=== PATIENT | male | born 1965 | race American Indian/Alaskan Native ===

== ENCOUNTER 2020-10-28 16:28 | Emergency (ER) | payer SELFPAY ==
[2020-10-28 17:19] VITALS: BP 116/71
--- NOTE | 2020-10-28 17:51 | XRay Report ---
CHEST PA AND LATERAL VIEWS INDICATION: cough. COMPARISON: None FINDINGS: Support devices: None Heart: Normal Lungs/Pleura: No acute pulmonary or pleural findings. IMPRESSION: 1. No significant abnormality. Signer Name: Sai Wei MD Signed: 10/28/2020 5:47 PM Workstation Name: [id number]
--- NOTE | 2020-10-28 18:31 | Emergency Department Report ---
- General Chief Complaint: Weakness Stated Complaint: FEVER;CHILLS;WEAKNESS Time Seen by Provider: 10/28/20 17:19 Source: patient Mode of arrival: Ambulatory Limitations: No Limitations - History of Present Illness Initial Comments: This is a 55-year-old male nontoxic, well nourished in appearance, no acute signs of distress presents to the ED with c/o of loss of smell and taste, productive cough, body aches, rhinorrhea, nasal congestion x several days. Patient describes productive cough as yellow mucus production. Patient denies any sick contacts. Patient denies any recent travels, long car, recent hospital stays. Patient denies any calf pain or calf tenderness. Patient denies any chest pain, short of breath, fever, chills, nausea, vomiting, hemoptysis, numbness, tingling, headache or stiff neck. Allergies to PCN. MD Complaint: cough, rhinorrhea, nasal congestion, other (Body aches) -: days(s) Severity: mild Severity scale (0 -10): 3 Quality: aching Consistency: constant Improves With: nothing Worsens With: nothing Associated Symptoms: rhinorrhea, nasal congestion, cough. denies: fever, chills, myalgias, diaphoresis, headache, sore throat, stiff neck, chest pain, shortness of breath, abdominal pain, nausea, vomiting, diarrhea, dysuria, rash, confusion, right sweats, weight loss, epistaxis, hoarseness, ear pain - Related Data Previous Rx's Medication Instructions Recorded Last Taken Type Benzonatate [Tessalon Perles] 100 mg PO Q8HR PRN #12 capsule 10/28/20 Unknown Rx Ondansetron [Zofran Odt] 4 mg PO Q12H PRN #12 tab.rapdis 10/28/20 Unknown Rx Allergies Allergy/AdvReac Type Severity Reaction Status Date / Time amoxicillin Allergy Hives Verified 10/28/20 17:11 ED Review of Systems ROS: Stated complaint: FEVER;CHILLS;WEAKNESS Other details as noted in HPI Comment: All other systems reviewed and negative Constitutional: denies: chills, fever Eyes: denies: eye pain, eye discharge, vision change ENT: congestion. denies: ear pain, throat pain Respiratory: cough. denies: shortness of breath, wheezing Cardiovascular: denies: chest pain, palpitations Endocrine: no symptoms reported Gastrointestinal: denies: abdominal pain, nausea, diarrhea Genitourinary: denies: urgency, dysuria Musculoskeletal: denies: back pain, joint swelling, arthralgia Skin: denies: rash, lesions Neurological: denies: headache, weakness, paresthesias Psychiatric: denies: anxiety, depression Hematological/Lymphatic: denies: easy bleeding, easy bruising ED Past Medical Hx - Past Medical History Hx Hypertension: Yes Hx Diabetes: Yes Additional medical history: HIGH CHOLESTROL - Social History Smoking Status: Never Smoker Substance Use Type: None - Medications Home Medications: Home Medications Medication Instructions Recorded Confirmed Last Taken Type Benzonatate [Tessalon Perles] 100 mg PO Q8HR PRN #12 capsule 10/28/20 Unknown Rx Ondansetron [Zofran Odt] 4 mg PO Q12H PRN #12 tab.rapdis 10/28/20 Unknown Rx ED Physical Exam - General Limitations: No Limitations General appearance: alert, in no apparent distress - Head Head exam: Present: atraumatic, normocephalic - Eye Eye exam: Present: normal appearance - Neck Neck exam: Present: normal inspection, full ROM. Absent: tenderness, meningismus, lymphadenopathy - Respiratory Respiratory exam: Present: normal lung sounds bilaterally. Absent: respiratory distress, wheezes, rales, rhonchi, stridor, chest wall tenderness, accessory muscle use, decreased breath sounds, prolonged expiratory - Cardiovascular Cardiovascular Exam: Present: regular rate, normal rhythm, normal heart sounds. Absent: bradycardia, tachycardia, irregular rhythm, systolic murmur, diastolic murmur, rubs, gallop - Extremities Exam Extremities exam: Present: full ROM - Back Exam Back exam: Present: full ROM - Neurological Exam Neurological exam: Present: alert, oriented X3, normal gait - Psychiatric Psychiatric exam: Present: normal affect, normal mood - Skin Skin exam: Present: warm, dry, intact, normal color. Absent: rash ED Course Vital Signs 10/28/20 17:16 Temperature 98.3 F Pulse Rate 82 Respiratory 20 Rate Blood Pressure 116/71 O2 Sat by Pulse 97 Oximetry - Reevaluation(s) Reevaluation #1: 10/28/20 18:31 Patient is speaking in full sentences with no signs of distress noted. ED Medical Decision Making - Radiology Data Referring Physician: MIAN REDMOND Patient Name: YOGI WHEATLEY Date of : 1965 Sex: Male Report Date: 2020-10-28 Report Status: Finalized [facility] [address] [place] [address] XRay Report Signed Patient: YOGI WHEATLEY MR#: [id number] : 1965 Acct:[id number] Age/Sex: 55 / M ADM Date: 10/28/20 Loc: ED Attending Dr: Ordering Physician: MIAN REDMOND NP Date of Service: 10/28/20 Procedure(s): XR chest routine 2V Accession Number(s): [id number] cc: MIAN REDMOND NP Fluoro Time In Minutes: CHEST PA AND LATERAL VIEWS INDICATION: cough. COMPARISON: None FINDINGS: Support devices: None Heart: Normal Lungs/Pleura: No acute pulmonary or pleural findings. IMPRESSION: 1. No significant abnormality. Signer Name: Sai Wei MD Signed: 10/28/2020 5:47 PM Workstation Name: [id number] Transcribed By: TM Dictated By: Sai Wei MD Electronically Authenticated By: Sai Wei MD Signed Date/Time: 10/28/201746 DD/ 45 TD/TT: - Medical Decision Making This is a 55-year-old male that presents with suspected Covid. Patient is stable and was examined by me. Chest x-ray has been obtained and dictated by radiologist with normal exam. Patient is notified of x-ray results with no questions noted. Patient does meet clinical concerns of COVID-19 and patient was instructed and educated on signs and symptoms and to self quarantine and seek medical attention as soon as possible if symptoms worsen. Patient given referrals for Covid swab testing. Patient was instructed to increase hydration, rest and take Tylenol for fever episodes. Vitals stable. Patient is nonfebrile and normal heart rate. Patient was instructed Follow-up with a primary care doctor in 3-5 days or if symptoms worsen and continue return to emergency room as soon as possible. At time time of discharge, the patient does not seem toxic or ill in appearance. No acute signs of distress noted. Patient agrees to [facility] treatment plan of care. No further questions noted by the patient.nt. Critical care attestation.: If time is entered above; I have spent that time in minutes in the direct care of this critically ill patient, excluding procedure time. ED Disposition Clinical Impression: Suspected COVID-19 virus infection Disposition: DC- TO HOME OR SELFCARE Is pt being admited?: No Does the pt Need Aspirin: No Condition: Stable Instructions: COVID-19, COVID-19: How to Protect Yourself and Others - [facility] Additional Instructions: Follow-up with a primary care doctor in 3-5 days or if symptoms worsen and continue return to emergency room as soon as possible. As educated and instructed to you must self quarantine yourself and people that you have been in close contact with similar symptoms for the next 14 days. Please see your nearest health department or primary care doctor that you are referred to for COVID testing. Increased rest, hydration, and take Tylenol as prescribed for fever episode. Prescriptions: Benzonatate [Tessalon Perles] 100 mg PO Q8HR PRN #12 capsule PRN Reason: Cough Ondansetron [Zofran Odt] 4 mg PO Q12H PRN #12 tab.rapdis PRN Reason: Nausea Referrals: AURELIO BAXTER MD [Primary Care Provider] - 3-5 Days PRIMARY CARE, [Referring] - 3-5 Days LALITHA HUERTA MD [Staff Physician] - 3-5 Days Forms: Work/School Release Form(ED) Time of Disposition: 18:36
== END 2020-10-28 19:35 | disposition home or self-care (01) ==
LOC: ED 16:28
DX: I10 Essential (primary) hypertension (principal); E11.9 Type 2 diabetes mellitus without complications; E78.00 Pure hypercholesterolemia, unspecified; Z20.828 Contact with and (suspected) exposure to other viral communicable diseases; Z79.899 Other long term (current) drug therapy; Z88.0 Allergy status to penicillin
CPT/HCPCS: 71046

== ENCOUNTER 2021-01-08 16:06 | Emergency (ER) | payer BC ==
--- NOTE | 2021-01-08 16:38 | Event Note ---
ED Screening Note Date of service: 01/08/21 Time: 16:35 ED Screening Note: 55-year-old male patient with history of diabetes presents emergency department via EMS for evaluation of altered mental status/syncope. It is unclear who called EMS to the patient's house. He states he has been feeling extremely dizzy and weak. Slow verbal responses but able to answer questions. Blood glucose level was normal in route. General: Awake, slow verbal responses. Neck: Supple. Full range of motion intact. Cardiovascular: Normal peripheral perfusion. Pulmonary: No respiratory distress. Patient is speaking normally without use of accessory muscles. Skin: No apparent rashes or lesions. Neurological: No facial asymmetry. Speech is clear. Follows commands. Patient is alert and oriented. Slow verbal responses. Strength and sensation intact throughout. Musculoskeletal: Moves all four extremities spontaneously with normal range of motion. Psych: Cooperative. Appropriate mood and affect. This initial assessment/diagnostic orders/clinical plan/treatment(s) is/are subject to change based on patients health status, clinical progression and re- assessment by fellow clinical providers in the ED. Further treatment and workup at subsequent clinical providers discretion. Patient/guardian urged not to elope from the ED as their condition may be serious if not clinically assessed and managed.
--- NOTE | 2021-01-08 17:06 | Cat Scan Report ---
CT head/brain wo con INDICATION / CLINICAL INFORMATION: 55 years Male; headache/syncope/AMS. TECHNIQUE: Routine CT head without contrast. All CT scans at this location are performed using CT dos e reduction for ALARA by means of automated exposure control. COMPARISON: None. FINDINGS: BRAIN / INTRACRANIAL CONTENTS: No acute hemorrhage, mass effect, midline shift, hydrocephalus, or acu te, large territorial infarct. No signs of significant atrophy or chronic infarct. There are minimal areas of decreased attenuation in the white matter of the cerebral hemispheres. The se are nonspecific findings and may be related to microangiopathy (hypertension, diabetes, atheroscle rosis), given the patient's age. CRANIOCERVICAL JUNCTION: No significant abnormality. ORBITS: No significant abnormality of visualized orbits. SINUSES / MASTOIDS: Visualized paranasal sinuses and mastoid air cells are essentially clear. ADDITIONAL FINDINGS: None. IMPRESSION: 1. No focal mass, hemorrhage, hydrocephalus, or acute, large territorial infarct. Signer Name: Andre Holland MD, III Signed: 01/08/2021 5:02 PM Workstation Name: [id number]
--- NOTE | 2021-01-08 17:13 | XRay Report ---
CHEST 1 VIEW 01/08/2021 4:07 PM INDICATION / CLINICAL INFORMATION: syncope. COMPARISON: October 28, 2020 FINDINGS: SUPPORT DEVICES: None. HEART / MEDIASTINUM: No significant abnormality. LUNGS / PLEURA: No significant pulmonary or pleural abnormality. No pneumothorax. ADDITIONAL FINDINGS: No significant additional findings. IMPRESSION: 1. No acute findings. Signer Name: Juan Francisco Nava MD Signed: 01/08/2021 5:08 PM Workstation Name: [email or web address]
[2021-01-08 17:23] LABS: Mean Corpuscular HGB Conc 34 % (32-34); Mean Corpuscular Volume 81 fl (84-94); Platelet Count 347 K/mm3 (140-440); Red Blood Count 3.94 M/mm3 (3.65-5.03); Red Cell Distribution Width 18.7 % (13.2-15.2)
[2021-01-08 18:22] LABS: Alanine Aminotransferase 38 units/L (7-56); BUN/Creatinine Ratio 19; Blood Urea Nitrogen 15 mg/dL (9-20); Calcium 9.3 mg/dL (8.4-10.2); Hemolysis Index 5
[2021-01-08] MEDS ORDERED: SODIUM CHLORIDE 0.9% 1000 ML 1,000 ML IV ONE (19:27)
--- NOTE | 2021-01-08 19:29 | Emergency Department Report ---
ED Syncope HPI - General Chief Complaint: Syncope Stated Complaint: HEADACHE Time Seen by Provider: 01/08/21 19:26 - Related Data Allergies/Adverse Reactions: Allergies amoxicillin Allergy (Verified 10/28/20 17:11) Hives Home Medications: Ambulatory Orders Benzonatate [Tessalon Perles] 100 mg PO Q8HR PRN #12 capsule 10/28/20 Ondansetron [Zofran Odt] 4 mg PO Q12H PRN #12 tab.rapdis 10/28/20 ED Review of Systems ROS: Stated complaint: HEADACHE Other details as noted in HPI ED Past Medical Hx - Past Medical History Previous Medical History?: Yes Hx Hypertension: Yes Hx Diabetes: Yes Additional medical history: HIGH CHOLESTROL - Surgical History Past Surgical History?: No - Social History Smoking Status: Never Smoker Substance Use Type: None - Medications Home Medications: Home Medications Medication Instructions Recorded Confirmed Last Taken Type Benzonatate [Tessalon Perles] 100 mg PO Q8HR PRN #12 capsule 10/28/20 Unknown Rx Ondansetron [Zofran Odt] 4 mg PO Q12H PRN #12 tab.rapdis 10/28/20 Unknown Rx ED Physical Exam - General Limitations: No Limitations ED Course Vital Signs 01/08/21 16:10 Temperature 98.4 F Pulse Rate 106 H Respiratory 18 Rate Blood Pressure 112/64 O2 Sat by Pulse 96 Oximetry ED Medical Decision Making - Lab Data Result diagrams: 01/08/21 17:03 01/08/21 17:03 Critical care attestation.: If time is entered above; I have spent that time in minutes in the direct care of this critically ill patient, excluding procedure time. ED Disposition Condition: Stable
--- NOTE | 2021-01-08 19:35 | Emergency Department Report ---
ED Syncope HPI - General Chief Complaint: Syncope Stated Complaint: HEADACHE Time Seen by Provider: 01/08/21 19:26 Source: patient, EMS, old records - History of Present Illness Initial Comments: 55-year male with a past medical history hypertension, diabetes, elevated cholesterol as per medical record is brought back emergently from triage after a witnessed syncopal episode with vomiting in the waiting room. Patient complaining of generalized weakness. When I interview patient he is slow to respond to questions and he complains of having generalized weakness and overall poor historian. He states he had a syncopal episode while playing video games prior to arrival. He reports decreased appetite for several days with decreased p.o. intake but denies pain. He initially denied having any past medical or surgical history when I interviewed the patient. He also denies alcohol abuse, substance abuse, or nausea vomiting prior to ED arrival. Patient apparently does complain of some difficulty swallowing. He states he last attempted to eat food 10 days ago and states it "swirls around in his mouth". He is able to tolerate liquids. He is currently taking the doxycycline recently prescribed. Is very difficult for him to describe whether or not he is having dysphagia versus odontophagia and what exactly is preventing him from swallowing. As per triage patient complained of headache today along with generalized weakness, dizziness, and sweating. Per EMS patient was unresponsive but gradually became responsive after their arrival. EMS reported a Blood glucose 210. Patient noted to fall asleep easily during triage. I did obtain collateral information from patient's sister Nicole for collateral information. She states that patient has a living with her for about 1 month si nce from his . For the last 3 months he has been sleeping a lot and not eating. He has having increased weakness and falls and she feels like he needs nutrition. He has visited an ER recently complaining of feel like something when his throat was placed on doxycycline. She reports a least a 50 pound weight loss in the last 3 months. She denies history of known psychiatric history. She states she thinks his medications include glipizide, Metformin, lisinopril, and atorvastatin Nurse was able to obtain that patient was recently admitted to [facility] and had a full work-up and evaluation without a definitive diagnosis or cause of symptoms. Patient does not know if he was tested for HIV - Related Data Allergies/Adverse Reactions: Allergies amoxicillin Allergy (Verified 10/28/20 17:11) Hives Home Medications: Ambulatory Orders Benzonatate [Tessalon Perles] 100 mg PO Q8HR PRN #12 capsule 10/28/20 Ondansetron [Zofran Odt] 4 mg PO Q12H PRN #12 tab.rapdis 10/28/20 Potassium Chloride [K-Dur] 20 meq PO BID #4 tab 01/09/21 levoFLOXacin [Levaquin TAB] 500 mg PO QDAY #4 tablet 01/09/21 ED Review of Systems ROS: Stated complaint: HEADACHE Other details as noted in HPI Comment: All other systems reviewed and negative ED Past Medical Hx - Past Medical History Previous Medical History?: Yes Hx Hypertension: Yes Hx Diabetes: Yes Additional medical history: HIGH CHOLESTROL - Surgical History Past Surgical History?: No - Social History Smoking Status: Never Smoker Substance Use Type: None - Medications Home Medications: Home Medications Medication Instructions Recorded Confirmed Last Taken Type Benzonatate [Tessalon Perles] 100 mg PO Q8HR PRN #12 capsule 10/28/20 Unknown Rx Ondansetron [Zofran Odt] 4 mg PO Q12H PRN #12 tab.rapdis 10/28/20 Unknown Rx Potassium Chloride [K-Dur] 20 meq PO BID #4 tab 01/09/21 Unknown Rx levoFLOXacin [Levaquin TAB] 500 mg PO QDAY #4 tablet 01/09/21 Unknown Rx ED Physical Exam - General Limitations: No Limitations - Other Other exam information: General: No acute distress Head: Atraumatic Eyes: normal appearance ENT: Dry mucous membranes without any posterior pharyngeal exudates or swelling. No stridor, no anterior neck mass, no thrush Neck: Normal appearance, no midline tenderness, no anterior neck mass noted Chest: Clear to auscultation bilaterally CV: Regular rate and rhythm Abdomen: Soft, normal bowel sounds, nontender, nondistended, no rebound or guarding Back: Normal inspection Extremity: Normal inspection, full range of motion Neuro: Alert O x 3, no facial asymmetry, speech clear, no gross motor sensory deficit Psych: Appropriate behavior Skin: No rash ED Course Vital Signs 01/08/21 01/08/21 01/08/21 16:10 19:28 19:30 Temperature 98.4 F Pulse Rate 106 H 88 90 Respiratory 18 18 16 Rate Blood Pressure 112/64 116/67 O2 Sat by Pulse 96 91 Oximetry 01/08/21 01/08/21 01/08/21 20:01 20:15 20:18 Temperature Pulse Rate 91 H 91 H Respiratory 21 20 18 Rate Blood Pressure 99/63 99/63 O2 Sat by Pulse 95 95 100 Oximetry 01/08/21 01/08/21 01/08/21 20:30 21:04 21:31 Temperature Pulse Rate 90 86 Respiratory 21 18 Rate Blood Pressure 102/63 102/63 105/61 O2 Sat by Pulse 76 L Oximetry 01/08/21 01/08/21 01/08/21 22:01 22:31 23:01 Temperature Pulse Rate 86 84 71 Respiratory 20 15 17 Rate Blood Pressure 100/60 115/65 121/67 O2 Sat by Pulse 97 97 Oximetry 01/08/21 01/09/21 01/09/21 23:31 00:01 00:30 Temperature Pulse Rate 69 74 79 Respiratory 21 18 17 Rate Blood Pressure 109/68 106/63 112/62 O2 Sat by Pulse 97 99 Oximetry 01/09/21 01/09/21 01/09/21 01:01 01:31 02:01 Temperature Pulse Rate 77 Respiratory 16 Rate Blood Pressure 93/60 123/67 117/72 O2 Sat by Pulse 97 97 Oximetry - Reevaluation(s) Reevaluation #1: 01/09/21 01:16 There is a patient has not complained of chest pain or shortness of breath. With generalized weakness. He was provided p.o. liquids and is able to tolerate without difficulty. Also tolerate swallowing a broken potassium chloride pill without difficulty. Patient was offered food to eat but he refused to eat stating he does not want to eat and does not have appetite. It does not appear to be any physical reason while patient cannot eat. During ED stay patient refuses to open his eyes at times. He refuses to follow some commands and speaks in a low voice and has to be encouraged to be cooperative and to provide information. Have not identified any concrete physical reasons for patient's presentation. I am concerned about patient's mental health and possible depression as a cause. Also been concerned that patient might benefit from HIV testing. Imaging of CT head, neck, chest abdomen and pelvis did not reveal any acute abnormalities. Patient apparently was recently admitted at [facility] for similar symptoms and had extensive work-up as well. I think patient would benefit from outpatient follow-up with her primary care doctor, HIV testing, and psychiatric evaluation. Patient did receive Levaquin for white cells in urine however, he lacks nitrites or findings of severe infection. 01/09/21 01:20 Bilateral Doppler was ordered and 9:44 PM and at this time it has not yet been performed. Production Generalist called the electronics technology department chair states that because it was ordered stat (even though it was ER order) it was not performed. I have reordered the bilateral leg Doppler stat at this time. I have a low suspicion for DVT given lack of leg edema but however, patient has and is significantly elevated D-dimer with lack of CT findings of pulmonary embolism ED Medical Decision Making - Lab Data Result diagrams: 01/08/21 17:03 01/08/21 17:03 Lab Results 01/08/21 01/08/21 01/08/21 Range/Units 17:03 17:03 17:03 WBC 2.2 L (4.5-11.0) K/mm3 RBC 3.94 (3.65-5.03) M/mm3 Hgb 11.0 L (11.8-15.2) gm/dl Hct 32.0 L (35.5-45.6) % MCV 81 L (84-94) fl MCH 28 (28-32) pg MCHC 34 (32-34) % RDW 18.7 H (13.2-15.2) % Plt Count 347 (140-440) K/mm3 Add Manual Diff Complete Total Counted 100 Seg Neuts % (Manual) 67.0 (40.0-70.0) % Band Neutrophils % 5.0 % Lymphocytes % (Manual) 13.0 L (13.4-35.0) % Monocytes % (Manual) 15.0 H (0.0-7.3) % Nucleated RBC % Not Reportable Seg Neutrophils # Man 1.5 L (1.8-7.7) K/mm3 Band Neutrophils # 0.1 K/mm3 Lymphocytes # (Manual) 0.3 L (1.2-5.4) K/mm3 Abs React Lymphs (Man) 0.0 K/mm3 Monocytes # (Manual) 0.3 (0.0-0.8) K/mm3 Eosinophils # (Manual) 0.0 (0.0-0.4) K/mm3 Basophils # (Manual) 0.0 (0.0-0.1) K/mm3 Metamyelocytes # 0.0 K/mm3 Myelocytes # 0.0 K/mm3 Promyelocytes # 0.0 K/mm3 Blast Cells # 0.0 K/mm3 WBC Morphology Not Reportable Hypersegmented Neuts Not Reportable Hyposegmented Neuts Not Reportable Hypogranular Neuts Not Reportable Smudge Cells Not Reportable Toxic Granulation Not Reportable Toxic Vacuolation Not Reportable Dohle Bodies Not Reportable Pelger-Huet Anomaly Not Reportable Vandana Rods Not Reportable Platelet Estimate Consistent w auto Clumped Platelets Not Reportable Plt Clumps, EDTA Not Reportable Large Platelets Rare Giant Platelets Not Reportable Platelet Satelliting Not Reportable Plt Morphology Comment Not Reportable RBC Morphology Not Reportable Dimorphic RBCs Not Reportable Polychromasia Not Reportable Hypochromasia Not Reportable Poikilocytosis Not Reportable Anisocytosis Not Reportable Microcytosis Not Reportable Macrocytosis Not Reportable Spherocytes Not Reportable Pappenheimer Bodies Not Reportable Sickle Cells Not Reportable Target Cells Not Reportable Tear Drop Cells Rare Ovalocytes Rare Helmet Cells Not Reportable Goyal-Alsey Bodies Not Reportable [place] Rings Not Reportable Caney Cells Not Reportable Bite Cells Not Reportable Crenated Cell Not Reportable Elliptocytes Not Reportable Acanthocytes (Spur) Not Reportable Rouleaux Not Reportable Hemoglobin C Crystals Not Reportable Schistocytes Not Reportable Malaria parasites Not Reportable [place] Bodies Not Reportable Hem Pathologist Commnt No PT (12.2-14.9) Sec. INR (0.87-1.13) APTT (24.2-36.6) Sec. D-Dimer (0-234) ng/mlDDU Sodium 138 (137-145) mmol/L Potassium 3.0 L (3.6-5.0) mmol/L Chloride 98.8 (98-107) mmol/L Carbon Dioxide 25 (22-30) mmol/L Anion Gap 17 mmol/L BUN 15 (9-20) mg/dL Creatinine 0.8 (0.8-1.3) mg/dL Estimated GFR > 60 ml/min BUN/Creatinine Ratio 19 % Glucose 211 H (75-100) mg/dL POC Glucose (70-105) mg/dL Calcium 9.3 (8.4-10.2) mg/dL Magnesium 2.00 (1.7-2.3) mg/dL Total Bilirubin 0.90 (0.1-1.2) mg/dL AST 48 H (5-40) units/L ALT 38 (7-56) units/L Alkaline Phosphatase 72 (35-129) units/L Troponin T < 0.010 (0.00-0.029) ng/mL Total Protein 7.8 (6.3-8.2) g/dL Albumin 4.0 (3.9-5) g/dL Albumin/Globulin Ratio 1.1 % Urine Color (Yellow) Urine Turbidity (Clear) Urine pH (5.0-7.0) Ur Specific [place] (1.003-1.030) Urine Protein (Negative) mg/dL Urine Glucose (UA) (Negative) mg/dL Urine Ketones (Negative) mg/dL Urine Blood (Negative) Urine Nitrite (Negative) Urine Bilirubin (Negative) Urine Urobilinogen (<2.0) mg/dL Ur Leukocyte Esterase (Negative) Urine WBC (Auto) (0.0-6.0) /HPF Urine RBC (Auto) (0.0-6.0) /HPF U Epithel Cells (Auto) (0-13.0) /HPF Urine Mucus /HPF Salicylates < 0.3 L (2.8-20.0) mg/dL Urine Opiates Screen Urine Methadone Screen Acetaminophen (10.0-30.0) ug/mL Ur Barbiturates Screen Ur Phencyclidine Scrn Ur Amphetamines Screen U Benzodiazepines Scrn Urine Cocaine Screen U Marijuana (THC) Screen Drugs of Abuse Note Plasma/Serum Alcohol (0-0.07) % 01/08/21 01/08/21 01/08/21 Range/Units 17:03 17:03 19:15 WBC (4.5-11.0) K/mm3 RBC (3.65-5.03) M/mm3 Hgb (11.8-15.2) gm/dl Hct (35.5-45.6) % MCV (84-94) fl MCH (28-32) pg MCHC (32-34) % RDW (13.2-15.2) % Plt Count (140-440) K/mm3 Add Manual Diff Total Counted Seg Neuts % (Manual) (40.0-70.0) % Band Neutrophils % % Lymphocytes % (Manual) (13.4-35.0) % Monocytes % (Manual) (0.0-7.3) % Nucleated RBC % Seg Neutrophils # Man (1.8-7.7) K/mm3 Band Neutrophils # K/mm3 Lymphocytes # (Manual) (1.2-5.4) K/mm3 Abs React Lymphs (Man) K/mm3 Monocytes # (Manual) (0.0-0.8) K/mm3 Eosinophils # (Manual) (0.0-0.4) K/mm3 Basophils # (Manual) (0.0-0.1) K/mm3 Metamyelocytes # K/mm3 Myelocytes # K/mm3 Promyelocytes # K/mm3 Blast Cells # K/mm3 WBC Morphology Hypersegmented Neuts Hyposegmented Neuts Hypogranular Neuts Smudge Cells Toxic Granulation Toxic Vacuolation Dohle Bodies Pelger-Huet Anomaly Vandana Rods Platelet Estimate Clumped Platelets Plt Clumps, EDTA Large Platelets Giant Platelets Platelet Satelliting Plt Morphology Comment RBC Morphology Dimorphic RBCs Polychromasia Hypochromasia Poikilocytosis Anisocytosis Microcytosis Macrocytosis Spherocytes Pappenheimer Bodies Sickle Cells Target Cells Tear Drop Cells Ovalocytes Helmet Cells Goyal-Alsey Bodies [place] Rings Caney Cells Bite Cells Crenated Cell Elliptocytes Acanthocytes (Spur) Rouleaux Hemoglobin C Crystals Schistocytes Malaria parasites [place] Bodies Hem Pathologist Commnt PT (12.2-14.9) Sec. INR (0.87-1.13) APTT (24.2-36.6) Sec. D-Dimer (0-234) ng/mlDDU Sodium (137-145) mmol/L Potassium (3.6-5.0) mmol/L Chloride (98-107) mmol/L Carbon Dioxide (22-30) mmol/L Anion Gap mmol/L BUN (9-20) mg/dL Creatinine (0.8-1.3) mg/dL Estimated GFR ml/min BUN/Creatinine Ratio % Glucose (75-100) mg/dL POC Glucose 124 H (70-105) mg/dL Calcium (8.4-10.2) mg/dL Magnesium (1.7-2.3) mg/dL Total Bilirubin (0.1-1.2) mg/dL AST (5-40) units/L ALT (7-56) units/L Alkaline Phosphatase (35-129) units/L Troponin T (0.00-0.029) ng/mL Total Protein (6.3-8.2) g/dL Albumin (3.9-5) g/dL Albumin/Globulin Ratio % Urine Color (Yellow) Urine Turbidity (Clear) Urine pH (5.0-7.0) Ur Specific [place] (1.003-1.030) Urine Protein (Negative) mg/dL Urine Glucose (UA) (Negative) mg/dL Urine Ketones (Negative) mg/dL Urine Blood (Negative) Urine Nitrite (Negative) Urine Bilirubin (Negative) Urine Urobilinogen (<2.0) mg/dL Ur Leukocyte Esterase (Negative) Urine WBC (Auto) (0.0-6.0) /HPF Urine RBC (Auto) (0.0-6.0) /HPF U Epithel Cells (Auto) (0-13.0) /HPF Urine Mucus /HPF Salicylates (2.8-20.0) mg/dL Urine Opiates Screen Urine Methadone Screen Acetaminophen 5.0 L (10.0-30.0) ug/mL Ur Barbiturates Screen Ur Phencyclidine Scrn Ur Amphetamines Screen U Benzodiazepines Scrn Urine Cocaine Screen U Marijuana (THC) Screen Drugs of Abuse Note Plasma/Serum Alcohol < 0.01 (0-0.07) % 01/08/21 01/08/21 01/08/21 Range/Units 19:30 23:39 23:39 WBC (4.5-11.0) K/mm3 RBC (3.65-5.03) M/mm3 Hgb (11.8-15.2) gm/dl Hct (35.5-45.6) % MCV (84-94) fl MCH (28-32) pg MCHC (32-34) % RDW (13.2-15.2) % Plt Count (140-440) K/mm3 Add Manual Diff Total Counted Seg Neuts % (Manual) (40.0-70.0) % Band Neutrophils % % Lymphocytes % (Manual) (13.4-35.0) % Monocytes % (Manual) (0.0-7.3) % Nucleated RBC % Seg Neutrophils # Man (1.8-7.7) K/mm3 Band Neutrophils # K/mm3 Lymphocytes # (Manual) (1.2-5.4) K/mm3 Abs React Lymphs (Man) K/mm3 Monocytes # (Manual) (0.0-0.8) K/mm3 Eosinophils # (Manual) (0.0-0.4) K/mm3 Basophils # (Manual) (0.0-0.1) K/mm3 Metamyelocytes # K/mm3 Myelocytes # K/mm3 Promyelocytes # K/mm3 Blast Cells # K/mm3 WBC Morphology Hypersegmented Neuts Hyposegmented Neuts Hypogranular Neuts Smudge Cells Toxic Granulation Toxic Vacuolation Dohle Bodies Pelger-Huet Anomaly Vandana Rods Platelet Estimate Clumped Platelets Plt Clumps, EDTA Large Platelets Giant Platelets Platelet Satelliting Plt Morphology Comment RBC Morphology Dimorphic RBCs Polychromasia Hypochromasia Poikilocytosis Anisocytosis Microcytosis Macrocytosis Spherocytes Pappenheimer Bodies Sickle Cells Target Cells Tear Drop Cells Ovalocytes Helmet Cells Goyal-Alsey Bodies [place] Rings Caney Cells Bite Cells Crenated Cell Elliptocytes Acanthocytes (Spur) Rouleaux Hemoglobin C Crystals Schistocytes Malaria parasites Austin Bodies Hem Pathologist Commnt PT (12.2-14.9) Sec. INR (0.87-1.13) APTT (24.2-36.6) Sec. D-Dimer 1635.89 H (0-234) ng/mlDDU Sodium (137-145) mmol/L Potassium (3.6-5.0) mmol/L Chloride (98-107) mmol/L Carbon Dioxide (22-30) mmol/L Anion Gap mmol/L BUN (9-20) mg/dL Creatinine (0.8-1.3) mg/dL Estimated GFR ml/min BUN/Creatinine Ratio % Glucose (75-100) mg/dL POC Glucose (70-105) mg/dL Calcium (8.4-10.2) mg/dL Magnesium (1.7-2.3) mg/dL Total Bilirubin (0.1-1.2) mg/dL AST (5-40) units/L ALT (7-56) units/L Alkaline Phosphatase (35-129) units/L Troponin T (0.00-0.029) ng/mL Total Protein (6.3-8.2) g/dL Albumin (3.9-5) g/dL Albumin/Globulin Ratio % Urine Color Yellow (Yellow) Urine Turbidity Slightly-cloudy (Clear) Urine pH 6.0 (5.0-7.0) Ur Specific [place] 1.025 (1.003-1.030) Urine Protein 100 mg/dl (Negative) mg/dL Urine Glucose (UA) Neg (Negative) mg/dL Urine Ketones Neg (Negative) mg/dL Urine Blood Neg (Negative) Urine Nitrite Neg (Negative) Urine Bilirubin Neg (Negative) Urine Urobilinogen < 2.0 (<2.0) mg/dL Ur Leukocyte Esterase Neg (Negative) Urine WBC (Auto) 7.0 H (0.0-6.0) /HPF Urine RBC (Auto) 5.0 (0.0-6.0) /HPF U Epithel Cells (Auto) 1.0 (0-13.0) /HPF Urine Mucus Few /HPF Salicylates (2.8-20.0) mg/dL Urine Opiates Screen Presumptive negative Urine Methadone Screen Presumptive negative Acetaminophen (10.0-30.0) ug/mL Ur Barbiturates Screen Presumptive negative Ur Phencyclidine Scrn Presumptive positive Ur Amphetamines Screen Presumptive negative U Benzodiazepines Scrn Presumptive negative Urine Cocaine Screen Presumptive negative U Marijuana (THC) Screen Presumptive negative Drugs of Abuse Note Disclamer Plasma/Serum Alcohol (0-0.07) % 01/08/21 01/08/21 01/09/21 Range/Units Unknown Unknown 01:31 WBC (4.5-11.0) K/mm3 RBC (3.65-5.03) M/mm3 Hgb (11.8-15.2) gm/dl Hct (35.5-45.6) % MCV (84-94) fl MCH (28-32) pg MCHC (32-34) % RDW (13.2-15.2) % Plt Count (140-440) K/mm3 Add Manual Diff Total Counted Seg Neuts % (Manual) (40.0-70.0) % Band Neutrophils % % Lymphocytes % (Manual) (13.4-35.0) % Monocytes % (Manual) (0.0-7.3) % Nucleated RBC % Seg Neutrophils # Man (1.8-7.7) K/mm3 Band Neutrophils # K/mm3 Lymphocytes # (Manual) (1.2-5.4) K/mm3 Abs React Lymphs (Man) K/mm3 Monocytes # (Manual) (0.0-0.8) K/mm3 Eosinophils # (Manual) (0.0-0.4) K/mm3 Basophils # (Manual) (0.0-0.1) K/mm3 Metamyelocytes # K/mm3 Myelocytes # K/mm3 Promyelocytes # K/mm3 Blast Cells # K/mm3 WBC Morphology Hypersegmented Neuts Hyposegmented Neuts Hypogranular Neuts Smudge Cells Toxic Granulation Toxic Vacuolation Dohle Bodies Pelger-Huet Anomaly Vandana Rods Platelet Estimate Clumped Platelets Plt Clumps, EDTA Large Platelets Giant Platelets Platelet Satelliting Plt Morphology Comment RBC Morphology Dimorphic RBCs Polychromasia Hypochromasia Poikilocytosis Anisocytosis Microcytosis Macrocytosis Spherocytes Pappenheimer Bodies Sickle Cells Target Cells Tear Drop Cells Ovalocytes Helmet Cells Goyal-Alsey Bodies [place] Rings Momo Cells Bite Cells Crenated Cell Elliptocytes Acanthocytes (Spur) Rouleaux Hemoglobin C Crystals Schistocytes Malaria parasites Austin Bodies Hem Pathologist Commnt PT 13.6 (12.2-14.9) Sec. INR 1.05 (0.87-1.13) APTT 30.6 (24.2-36.6) Sec. D-Dimer (0-234) ng/mlDDU Sodium (137-145) mmol/L Potassium (3.6-5.0) mmol/L Chloride (98-107) mmol/L Carbon Dioxide (22-30) mmol/L Anion Gap mmol/L BUN (9-20) mg/dL Creatinine (0.8-1.3) mg/dL Estimated GFR ml/min BUN/Creatinine Ratio % Glucose (75-100) mg/dL POC Glucose (70-105) mg/dL Calcium (8.4-10.2) mg/dL Magnesium 2.00 (1.7-2.3) mg/dL Total Bilirubin (0.1-1.2) mg/dL AST (5-40) units/L ALT (7-56) units/L Alkaline Phosphatase (35-129) units/L Troponin T < 0.010 (0.00-0.029) ng/mL Total Protein (6.3-8.2) g/dL Albumin (3.9-5) g/dL Albumin/Globulin Ratio % Urine Color (Yellow) Urine Turbidity (Clear) Urine pH (5.0-7.0) Ur Specific [place] (1.003-1.030) Urine Protein (Negative) mg/dL Urine Glucose (UA) (Negative) mg/dL Urine Ketones (Negative) mg/dL Urine Blood (Negative) Urine Nitrite (Negative) Urine Bilirubin (Negative) Urine Urobilinogen (<2.0) mg/dL Ur Leukocyte Esterase (Negative) Urine WBC (Auto) (0.0-6.0) /HPF Urine RBC (Auto) (0.0-6.0) /HPF U Epithel Cells (Auto) (0-13.0) /HPF Urine Mucus /HPF Salicylates (2.8-20.0) mg/dL Urine Opiates Screen Urine Methadone Screen Acetaminophen (10.0-30.0) ug/mL Ur Barbiturates Screen Ur Phencyclidine Scrn Ur Amphetamines Screen U Benzodiazepines Scrn Urine Cocaine Screen U Marijuana (THC) Screen Drugs of Abuse Note Plasma/Serum Alcohol (0-0.07) % - EKG Data -: EKG Interpreted by Ct EKG shows normal: sinus rhythm, ST-T waves (Nonspecific T wave abnormalities inferior lateral leads) Rate: normal (98) - EKG Data When compared to previous EKG there are: previous EKG unavailable 01/09/21 01:33 Repeat EKG performed at 1:25 AM shows persistent nonspecific T wave abnormalities inferior lateral leads. Sinus bradycardia 59. IA 2-3. No ST elevation IN. - Radiology Data Radiology results: report reviewed CHEST 1 VIEW 01/08/2021 4:07 PM INDICATION / CLINICAL INFORMATION: syncope. COMPARISON: October 28, 2020 FINDINGS: SUPPORT DEVICES: None. HEART / MEDIASTINUM: No significant abnormality. LUNGS / PLEURA: No significant pulmonary or pleural abnormality. No pneumothorax. ADDITIONAL FINDINGS: No significant additional findings. IMPRESSION: 1. No acute findings. CT head/brain wo con INDICATION / CLINICAL INFORMATION: 55 years Male; headache/syncope/AMS. TECHNIQUE: Routine CT head without contrast. All CT scans at this location are performed using CT dose reduction for ALARA by means of automated exposure control. COMPARISON: None. FINDINGS: BRAIN / INTRACRANIAL CONTENTS: No acute hemorrhage, mass effect, midline shift, hydrocephalus, or acute, large territorial infarct. No signs of significant atrophy or chronic infarct. There are minimal areas of decreased attenuation in the white matter of the cerebral hemispheres. These are nonspecific findings and may be related to microangiopathy (hypertension, diabetes, at herosclerosis), given the patient's age. CRANIOCERVICAL JUNCTION: No significant abnormality. ORBITS: No significant abnormality of visualized orbits. SINUSES / MASTOIDS: Visualized paranasal sinuses and mastoid air cells are essentially clear. ADDITIONAL FINDINGS: None. IMPRESSION: 1. No focal mass, hemorrhage, hydrocephalus, or acute, large territorial infarct. CT neck w con INDICATION / CLINICAL INFORMATION: 55 years Male; DIFFICULTY SWALLOWING, THROAT PAIN. TECHNIQUE: Contiguous thin cut axial images obtained through the neck following IV contrast. Sagittal and coronal reconstructions performed by the technologist. All CT scans at this location are performed using CT dose reduction for ALARA by means of automated exposure control. COMPARISON: None available. FINDINGS: No evidence of metallic marker or vitamin E capsule to denote an area of interest. MUCOSAL SPACE: The nasopharynx, oropharynx and vallecula, oral cavity and floor of mouth, hypopharynx, and larynx are grossly normal. There may be a small, air-filled external laryngocele on the right. No surrounding inflammatory change seen. Desiccated secretions or debris is seen in the right piriform sinus. LYMPH NODES: No significant adenopathy appreciated. SALIVARY GLANDS: Parotid, submandibular, and visualized sublingual glands are within normal limits. THYROID GLAND: Unremarkable. PARANASAL SINUSES: Minimal mucosal thickening seen in the ethmoids. SPINE: No significant abnormality of the cervical spine appreciated. Incidental note is made of a hemangioma in the pedicle and pars interarticularis region on the left at C7-of no clinical significance. VASCULAR STRUCTURES: Vascular structures are grossly normal in appearance. ADDITIONAL FINDINGS: Surrounding soft tissues are otherwise grossly normal. IMPRESSION: 1. No definitive cause for patient's symptomatology appreciated. CTA CHEST WITH IV CONTRAST INDICATION: Syncope. TECHNIQUE: Axial CT images were obtained through the chest after injection of IV contrast. Coronal oblique 2- D reconstruction images were produced. 3 plane MIP reconstruction images were produced at an independent workstation. All CTs at this facility utilize dose reduction techniques including automated exposure control, iterative reconstruction and weight based dosing when appropriate to reduce patient radiation dose to as low as reasonable achievable. COMPARISON: Chest radiograph, 01/08/2021. No prior cross-sectional imaging is available for comparison FINDINGS: No filling defects are visualized within the central or segmental pulmonary arteries to suggest pulmonary embolism. The heart is mildly enlarged. The thoracic aorta is normal in caliber. Evaluation of the lung parenchyma demonstrates no focal airspace disease or pleural effusion. Limited imaging of the upper abdomen demonstrates no evidence of acute abnormality.. Bones and soft tissues: No significant surrounding. IMPRESSION: 1. No evidence of pulmonary embolism or acute parenchymal process. 2. Mild cardiomegaly. CT ABDOMEN AND PELVIS WITH CONTRAST HISTORY: MID AND RLQ PAIN, WEIGHT LOSS, NO appetite. COMPARISON: None. TECHNIQUE: CT images of the abdomen and pelvis were obtained following administration of intravenous contrast. All CT scans at this location are performed using CT dose reduction for ALARA by means of automated exposure control. CONTRAST: 100 ml of intravenous contrast administered. FINDINGS: Lungs/bones: Minimal atelectasis in the lung bases Abdomen/pelvis: Mild fatty infiltration the liver. The spleen, adrenal glands, pancreas, gallbladder and upper GI tract appear normal. There is a right renal cyst. No hydronephrosis is seen. The appendix appears normal. No inflammatory changes seen. The prostate is enlarged and heterogeneous with central calcifications. Prostate measures 6 cm. Aorta appears normal. There is a small pericardial effusion anteriorly. No bowel obstruction is seen no dominant adenopathy is identified however there are a few mildly prominent nodes in the para-aortic region measuring up to 8 mm.. Degenerative changes seen throughout spine. IMPRESSION: 1. No CT evidence for appendicitis. Nonspecific bowel gas with evidence for obstruction. 2. Prostate is enlarged. There are central calcifications. Correlation with PSA. 3. A few mildly prominent nodes in the periaortic region have no dominant adenopathy. 4. Small pericardial effusion. 5. Small right renal cyst. - Medical Decision Making 55-year-old male presents to the hospital with poor food intake and refuses to eat x3 months with significant weight loss. ED work-up here has not revealed any significant pathology prohibiting patient from tolerating p.o. intake. The cause of decreased appetite unclear at this time. HIV testing, PMD follow-up, and psychiatric evaluation as outpatient recommended. UDS positive for PCP so substance abuse also in the differential. UA also shows mild increased white count which will be treated with Levaquin. Patient has several syncopal episodes likely secondary to poor p.o. intake and dehydration. Patient received several liters of IV hydration in the ED. Po KCL provided for mild hypokalemia. EKG shows nonspecific T wave abnormalities that are unchanged compared to previous ekg today and troponin negative. Patient does not endorse chest pain or shortness of breath. Patient had imaging of CT head, neck, CTA chest, CT abdomen pelvis, bilateral leg Dopplers Case s/o to Dr Lacey to d/c pt if bilateral leg Dopplers and repeat troponin are negative chart reviewed 01/10 11:09 second trop neg as per drain technician read on imaging viewer b/l dvt exam negative pt was d/sean home. Critical Care Time: No Critical care attestation.: If time is entered above; I have spent that time in minutes in the direct care of this critically ill patient, excluding procedure time. ED Disposition Clinical Impression: Dehydration, Poor appetite, Poor eating habits, Hypokalemia, Urine WBC increased Disposition: DC- TO HOME OR SELFCARE Is pt being admited?: No Does the pt Need Aspirin: No Condition: Stable Instructions: Hypokalemia, Dehydration, Adult, [id number], Urinary Tract Infection, Adult, Potassium Content of Foods Additional Instructions: Take the medication as prescribed. Follow-up with your doctor or doctor/clinic provided. I think you will benefit for follow-up with your primary care doctor, a psychiatrist, and to receive HIV testing as outpatient. Return if symptoms worsen as indicated by your discharge instructions. Consider supplementing your nutrition with Ensure or boost drinks. Prescriptions: Potassium Chloride [K-Dur] 20 meq PO BID #4 tab levoFLOXacin [Levaquin TAB] 500 mg PO QDAY #4 tablet Referrals: PRIMARY CAREMD [Primary Care Provider] - 3-5 Days [facility] [Outside] - 3-5 Days [place] ROSADO MD [Staff Physician] - 3-5 Days (primary care doctor ) [facility] [Provider Group] - 3-5 Days (primary care clinic )
[2021-01-08] MEDS ORDERED: THIAMINE 100 MG, FOLIC ACID 1 MG in SODIUM CHLORIDE 0.9% 1000 ML 1,000 ML IV ONE (20:00)
[2021-01-08 20:12] LABS: Band Neutrophils # (Manual) 0.1 K/mm3; Total Cells Counted 100
[2021-01-08 20:14] LABS: Ovalocytes Rare; Tear Drop Cells Rare
[2021-01-08 20:15] LABS: Large Platelets Rare; Platelet Estimate Consistent w Auto
[2021-01-08 20:28] LABS: INR 1.05 (0.87-1.13); Partial Thromboplastin Time 30.6 Sec. (24.2-36.6)
--- NOTE | 2021-01-08 21:23 | Cat Scan Report ---
CT ABDOMEN AND PELVIS WITH CONTRAST HISTORY: MID AND RLQ PAIN, WEIGHT LOSS, NO appetite. COMPARISON: None. TECHNIQUE: CT images of the abdomen and pelvis were obtained following administration of intravenous contrast. All CT scans at this location are performed using CT dose reduction for ALARA by means of automated exposure control. CONTRAST: 100 ml of intravenous contrast administered. FINDINGS: Lungs/bones: Minimal atelectasis in the lung bases Abdomen/pelvis: Mild fatty infiltration the liver. The spleen, adrenal glands, pancreas, gallbladder and upper GI tract appear normal. There is a right renal cyst. No hydronephrosis is seen. The append ix appears normal. No inflammatory changes seen. The prostate is enlarged and heterogeneous with cent ral calcifications. Prostate measures 6 cm. Aorta appears normal. There is a small pericardial effusi on anteriorly. No bowel obstruction is seen no dominant adenopathy is identified however there are a few mildly prominent nodes in the para-aortic region measuring up to 8 mm.. Degenerative changes seen throughout spine. IMPRESSION: 1. No CT evidence for appendicitis. Nonspecific bowel gas with evidence for obstruction. 2. Prostate is enlarged. There are central calcifications. Correlation with PSA. 3. A few mildly prominent nodes in the periaortic region have no dominant adenopathy. 4. Small pericardial effusion. 5. Small right renal cyst. Signer Name: Juan Francisco Nava MD Signed: 01/08/2021 9:19 PM Workstation Name: [id number]
--- NOTE | 2021-01-08 21:23 | Cat Scan Report ---
CTA CHEST WITH IV CONTRAST INDICATION: Syncope. TECHNIQUE: Axial CT images were obtained through the chest after injection of IV contrast. Coronal oblique 2-D reconstruction images were produced. 3 plane MIP reconstruction images were produced at an [employer] workstation. All CTs at this facility utilize dose reduction techniques including automated expos ure control, iterative reconstruction and weight based dosing when appropriate to reduce patient radi ation dose to as low as reasonable achievable. COMPARISON: Chest radiograph, 01/08/2021. No prior cross-sectional imaging is available for comparison FINDINGS: No filling defects are visualized within the central or segmental pulmonary arteries to suggest pulmo nary embolism. The heart is mildly enlarged. The thoracic aorta is normal in caliber. Evaluation of t he lung parenchyma demonstrates no focal airspace disease or pleural effusion. Limited imaging of the upper abdomen demonstrates no evidence of acute abnormality.. Bones and soft tissues: No significant surrounding. IMPRESSION: 1. No evidence of pulmonary embolism or acute parenchymal process. 2. Mild cardiomegaly. Signer Name: Elisa Almendarez MD Signed: 01/08/2021 9:18 PM Workstation Name: [id number]
--- NOTE | 2021-01-08 21:35 | Cat Scan Report ---
CT neck w con INDICATION / CLINICAL INFORMATION: 55 years Male; DIFFICULTY SWALLOWING, THROAT PAIN. TECHNIQUE: Contiguous thin cut axial images obtained through the neck following IV contrast. Sagittal and lua l reconstructions performed by the technologist. All CT scans at this location are performed using CT dose reduction for ALARA by means of automated exposure control. COMPARISON: None available. FINDINGS: No evidence of metallic marker or vitamin E capsule to denote an area of interest. MUCOSAL SPACE: The nasopharynx, oropharynx and vallecula, oral cavity and floor of mouth, hypopharynx , and larynx are grossly normal. There may be a small, air-filled external laryngocele on the right. No surrounding inflammatory change seen. Desiccated secretions or debris is seen in the right pirifor m sinus. LYMPH NODES: No significant adenopathy appreciated. SALIVARY GLANDS: Parotid, submandibular, and visualized sublingual glands are within normal limits. THYROID GLAND: Unremarkable. PARANASAL SINUSES: Minimal mucosal thickening seen in the ethmoids. SPINE: No significant abnormality of the cervical spine appreciated. Incidental note is made of a hem angioma in the pedicle and pars interarticularis region on the left at C7-of no clinical significance . VASCULAR STRUCTURES: Vascular structures are grossly normal in appearance. ADDITIONAL FINDINGS: Surrounding soft tissues are otherwise grossly normal. IMPRESSION: 1. No definitive cause for patient's symptomatology appreciated. Signer Name: Andre Holland MD, III Signed: 01/08/2021 9:31 PM Workstation Name: [id number]
[2021-01-08] MEDS ORDERED: POTASSIUM CHLORIDE ER 20 MEQ TAB PO ONE (22:05)
[2021-01-08 23:57] LABS: Amphetamine Screen,Urine PRESUMPTIVE NEGATIVE; Benzodiazepines Screen,Urine PRESUMPTIVE NEGATIVE; Cannabinoid Screen,Urine PRESUMPTIVE NEGATIVE; Cocaine Screen,Urine PRESUMPTIVE NEGATIVE; Methadone Screen,Urine PRESUMPTIVE NEGATIVE; Opiate Screen,Urine PRESUMPTIVE NEGATIVE
[2021-01-09 00:03] LABS: Bilirubin,Urine NEG (Negative); Blood,Urine NEG (Negative); Color,Urine Yellow (Yellow); Mucus,Urine FEW /HPF; Urobilinogen,Urine < 2.0 mg/dL (<2.0)
[2021-01-09] MEDS ORDERED: levoFLOXacin 750 MG TAB PO ONE (00:24)
[2021-01-09] MEDS ORDERED: SODIUM CHLORIDE 0.9% 1000 ML 1,000 ML IV ONE (01:23)
[2021-01-09 02:06] VITALS: BP 117/72
== END 2021-01-09 04:45 | disposition home or self-care (01) ==
LOC: ED 16:06
DX: E87.6 Hypokalemia (principal); E86.0 Dehydration; R82.90 Unspecified abnormal findings in urine; R63.0 Anorexia; Z68.24 Body mass index [BMI] 24.0-24.9, adult; I10 Essential (primary) hypertension; E11.9 Type 2 diabetes mellitus without complications; Z79.899 Other long term (current) drug therapy; Z88.1 Allergy status to other antibiotic agents
CPT/HCPCS: 36415; 70450; 70491; 71045; 71275; 74177; 80053; 80307; 81001; 82962; 83735; 84484; 85007; 85025; 85379; 85610; 85730; 93005; 93970; 96361; 96365; 99285; J3411; J7030; Q9967; 80320; G0480